=== PATIENT | female | born 1965 | race African-American/Black ===

== ENCOUNTER 2016-10-20 00:41 | Emergency (ER) | payer SELFPAY ==
[~2016-10-20] VITALS: Ht 167.6 cm; Wt 97.0 kg
[~2016-10-20 00:41] MED LIST: CLON-352 PO; HYDR12.56 PO
[2016-10-20 00:44] VITALS: BP 178/92; PULSE 79; RESP 18; TEMP 98.1; O2SAT 100
--- NOTE | 2016-10-20 02:28 | PD ---
HPI Chief Complaint: Foreign Body Time Seen by Provider: 02:20 Travel History International Travel<30 days: No Contact w/Intl Traveler<30days: No Traveled to known affect area: No History of Present Illness HPI This is a 50-year-old female with a chief complaint of "I have a franks in my ear." She reports that she woke up tonight the sensation of a bug crawling in her right ear canal. She reports a fluttering sensation in a scratching sensation. Symptoms were worse when she initially woke up and then seemed to have resolved. At one point during our conversation she felt a brief fluttering sensation in her right ear again. Denies any hearing changes. Denies any cough or congestion. No other complaints. PFSH Past Medical History Tubal Ligation: Yes Past Surgical History Joint Replacement: Yes Social History Alcohol Use: No Tobacco Use: No Substance Use: No Allergies-Medications (Allergen,Severity, Reaction): Coded Allergies: No Known Allergies (Unverified , 07/31/12) Reported Meds & Prescriptions Reported Meds & Active Scripts Active Hctz (Hydrochlorothiazide) 12.5 Mg Cap 12.5 Mg PO DAILY Clonidine Hcl (Clonidine HCl) 0.1 Mg Tab 0.1 Mg PO TID Review of Systems General / Constitutional: No: Fever HENT: Positive: Other (positive for irritation, crawling sensation in her right ear canal.), No: Sore Throat, Congestion, Ear Discharge Respiratory: No: Cough Physical Exam Narrative GENERAL: Well-developed well-nourished female in no acute distress SKIN: Warm and dry. HEAD: Atraumatic. Normocephalic. EYES: Pupils equal and round. No scleral icterus. No injection or drainage. ENT: No nasal bleeding or discharge. Mucous membranes pink and moist. Examination of the left ear canal is unremarkable. Examination of the right ear canal reveals a small amount of cerumen which was removed using an ear curette. Upon reexamination there is no evidence of foreign body. The tympanic membrane is fully visualized and there is no perforation or serous otitis media. NECK: Trachea midline. No JVD. Data Data Last Documented VS Vital Signs Date Time Temp Pulse Resp B/P Pulse Ox O2 Delivery O2 Flow Rate FiO2 10/20/16 00:44 98.1 79 18 178/92 100 Room Air Orders Lidocaine Pf 1% Inj (Xylocaine-Mpf 1% In (10/20/16 02:30) MDM Medical Decision Making Medical Screen Exam Complete: Yes Emergency Medical Condition: Yes Medical Record Reviewed: Yes Differential Diagnosis Foreign body right ear resolved versus foreign body right ear versus cerumen versus otitis externa Narrative Course 50-year-old female presents with the sensation of a bug in her right ear. There is no obvious in the right ear. Some cerumen was removed and there is still no evidence of foreign body. The plan would be to apply 1% lidocaine to the right ear canal for several minutes and then reevaluate the patient. Upon reexamination the patient feels better. The right ear was reexamined and there is still no evidence of foreign body. She is stable for discharge. Diagnosis Primary Impression: Foreign body sensation in ear canal Qualified Code: H61.891 - Foreign body sensation in ear canal, right Departure Forms: Tests/Procedures, Work Release Enter return to work date: October 23, 2016 Additional Instructions: Follow-up with primary care physician as needed. Return for any emergent medical conditions. Med/Other Pt SpecificInfo: No Change to Meds Disposition: 01 DISCHARGE HOME Condition: Stable Richard Rubalcava Oct 20, 2016 02:28
[2016-10-20] MEDS ORDERED: LIDOCAINE HCL 1% PF 30 ML VIAL INFIL ONE (02:30)
== END 2016-10-20 03:50 | disposition home or self-care (01) ==
LOC: NEPK 00:41
DX: H61.21 Impacted cerumen, right ear (principal); Z71.1 Person with feared health complaint in whom no diagnosis is made
CPT/HCPCS: 99282